=== PATIENT | female | born 2000 | race Caucasian/White ===

== ENCOUNTER 2019-01-09 14:55 | Emergency (ER) | payer OTHER ==
--- NOTE | 2019-01-09 15:16 | ER Report ---
History and Physical Time Seen By MD: 15:09 Hx. of Stated Complaint: PATIENT REPORTS THOUGHTS OF WANTING TO HURT HERSELF. HAS HISTORY OF CUTTING. REPORTS STRUGGLING WITH DEPRESSION FOR 5 YEARS HPI/ROS CHIEF COMPLAINT: Depression and suicidal ideation HISTORY OF PRESENT ILLNESS: This is a 18-year-old female who presents to emergency department for depression and suicidal ideations. The patient states that she has a long history of depression and anxiety. C also has a history of cutting usually on her right leg. Patient states that last semester she broke up with her boyfriend, did poorly in school's had other stressors that she is not diagnosing at this time. She states that she's had increased thoughts of hurting herself, today more specifically cutting herself with a knife, she did confide in her friend to subsequently brought her to the ER for evaluation. Patient is making intermittent eye contact, very judith voice, knees are flexed and hands in her lap. She does have tears welling up in her eyes. She denies fevers or chills. No chest pain or shortness of breath. No other complaints. REVIEW OF SYSTEMS: Constitutional: No fever, no chills. Eyes: No discharge. ENT: No sore throat. Cardiovascular: No chest pain, no palpitations. Respiratory: No cough, no shortness of breath. Gastrointestinal: No abdominal pain, no vomiting. Genitourinary: No hematuria. Musculoskeletal: No back pain. Skin: No rashes. Neurological: No headache. Psychological: As above. Allergies: Coded Allergies: Penicillins (Verified Allergy, Mild, 01/09/19) Sulfa (Sulfonamide Antibiotics) (Verified Allergy, Mild, 01/09/19) Past Medical/Surgical History The patient has a past medical and surgical history of depression and anxiety. Reviewed Nurses Notes: Yes Constitutional Vital Sign - Last 24 Hours 01/09/19 01/09/19 15:03 17:11 Temp 98.5 Pulse 91 84 Resp 16 16 B/P (MAP) 135/101 111/89 (96) Pulse Ox 97 95 O2 Delivery Room Air Room Air Physical Exam General Appearance: The patient is alert, has no immediate need for airway protection and no signs of toxicity. Eyes: Pupils equal and round no pallor or injection. ENT, Mouth: Mucous membranes are moist. Respiratory: There are no retractions, lungs are clear to auscultation. Cardiovascular: Regular rate and rhythm. Gastrointestinal: Abdomen is soft and non tender, no masses, bowel sounds normal. Neurological: Alert and oriented 4. Moving all extremities. Following all commands. No focal neurodeficits. Skin: Warm and dry, no rashes. Musculoskeletal: Neck is supple non tender. Extremities are nontender, nonswollen and have full range of motion. Psychological: Very soft and judith voice, intermittent eye contact, hand and lap, tears welling up in her eyes, forthcoming with some information however she is still guarded. DIFFERENTIAL DIAGNOSIS: After history and physical exam differential diagnosis was considered for suicidal ideation. Medical Decision Making Data Points Result Diagram: 01/09/19 1528 01/09/19 1528 Laboratory Hematology Test 01/09/19 15:28 Red Blood Count 5.38 M/uL (4.17-5.56) Mean Corpuscular Volume 89.8 fL (80.0-96.0) Mean Corpuscular Hemoglobin 30.9 pg (26.0-33.0) Mean Corpuscular Hemoglobin Concent 34.4 g/dL (32.0-36.0) Red Cell Distribution Width 12.5 % (11.5-14.5) Mean Platelet Volume 7.9 fL (7.2-11.1) Neutrophils (%) (Auto) 65.4 % (39.4-72.5) Lymphocytes (%) (Auto) 26.0 % (17.6-49.6) Monocytes (%) (Auto) 4.8 % (4.1-12.4) Eosinophils (%) (Auto) 1.7 % (0.4-6.7) Basophils (%) (Auto) 2.1 % (0.3-1.4) Nucleated RBC Relative Count (auto) 0.1 /100WBC Neutrophils # (Auto) 2.3 K/uL (2.0-7.4) Lymphocytes # (Auto) 0.9 K/uL (1.3-3.6) Monocytes # (Auto) 0.2 K/uL (0.3-1.0) Eosinophils # (Auto) 0.1 K/uL (0.0-0.5) Basophils # (Auto) 0.1 K/uL (0.0-0.1) Nucleated RBC Absolute Count (auto) 0.00 K/uL Urine Color Yellow Urine Clarity Clear Urine pH 7.0 pH (4.8-9.5) Urine Specific [place] 1.010 Urine Protein Negative mg/dL (NEGATIVE) Urine Glucose (UA) Negative mg/dL (NEGATIVE) Urine Ketones Negative mg/dL (NEGATIVE) Urine Blood Negative (NEGATIVE) Urine Nitrite Negative (NEGATIVE) Urine Bilirubin Negative (NEGATIVE) Urine Urobilinogen Negative mg/dL (0.2-1.9) Urine Leukocyte Esterase Negative (NEGATIVE) Urine RBC <1 /HPF (0-2/HPF) Urine WBC 1 /HPF (0-5/HPF) Urine Squamous Epithelial Cells Many /LPF (</=FEW) Urine Bacteria Few /HPF (NONE-FEW) Urine Mucus Few /HPF (NONE-FEW) Urine HCG, Qualitative Negative (NEGATIVE) Sodium Level 142 mmol/L (137-145) Potassium Level 3.8 mmol/L (3.5-5.0) Chloride Level 103 mmol/L (98-107) Carbon Dioxide Level 27 mmol/L (22-31) Blood Urea Nitrogen 10 mg/dl (7-18) Creatinine 0.70 mg/dl (0.52-1.04) Glomerular Filtration Rate Calc > 60.0 Random Glucose 87 mg/dl (75-110) Calcium Level 10.1 mg/dl (8.4-10.2) Magnesium Level 2.0 mg/dl (1.7-2.2) Total Bilirubin 0.8 mg/dl (0.2-1.3) Aspartate Amino Transf (AST/SGOT) 23 U/L (0-35) Alanine Aminotransferase (ALT/SGPT) 19 U/L (0-56) Alkaline Phosphatase 69 U/L (0-126) Total Protein 8.8 g/dl (6.3-8.2) Albumin 5.5 g/dl (3.5-5.0) Salicylates Level < 10 mg/L Salicylate Last Dose Date unk Urine Opiates Screen Negative Acetaminophen Level < 10 ug/ml Urine Barbiturates Screen Negative Ur Tricyclic Antidepressants Screen Negative Urine Phencyclidine Screen Negative Urine Amphetamines Screen Negative Urine Benzodiazepines Screen Negative Urine Cocaine Screen Negative Urine Cannabinoids Screen Negative Serum Alcohol < 10 mg/dl Chemistry Test 01/09/19 15:28 White Blood Count 3.5 k/uL (4.5-11.0) Red Blood Count 5.38 M/uL (4.17-5.56) Hemoglobin 16.6 g/dL (12.0-16.0) Hematocrit 48.3 % (34.0-47.0) Mean Corpuscular Volume 89.8 fL (80.0-96.0) Mean Corpuscular Hemoglobin 30.9 pg (26.0-33.0) Mean Corpuscular Hemoglobin Concent 34.4 g/dL (32.0-36.0) Red Cell Distribution Width 12.5 % (11.5-14.5) Platelet Count 241 K/uL (150-450) Mean Platelet Volume 7.9 fL (7.2-11.1) Neutrophils (%) (Auto) 65.4 % (39.4-72.5) Lymphocytes (%) (Auto) 26.0 % (17.6-49.6) Monocytes (%) (Auto) 4.8 % (4.1-12.4) Eosinophils (%) (Auto) 1.7 % (0.4-6.7) Basophils (%) (Auto) 2.1 % (0.3-1.4) Nucleated RBC Relative Count (auto) 0.1 /100WBC Neutrophils # (Auto) 2.3 K/uL (2.0-7.4) Lymphocytes # (Auto) 0.9 K/uL (1.3-3.6) Monocytes # (Auto) 0.2 K/uL (0.3-1.0) Eosinophils # (Auto) 0.1 K/uL (0.0-0.5) Basophils # (Auto) 0.1 K/uL (0.0-0.1) Nucleated RBC Absolute Count (auto) 0.00 K/uL Urine Color Yellow Urine Clarity Clear Urine pH 7.0 pH (4.8-9.5) Urine Specific [place] 1.010 Urine Protein Negative mg/dL (NEGATIVE) Urine Glucose (UA) Negative mg/dL (NEGATIVE) Urine Ketones Negative mg/dL (NEGATIVE) Urine Blood Negative (NEGATIVE) Urine Nitrite Negative (NEGATIVE) Urine Bilirubin Negative (NEGATIVE) Urine Urobilinogen Negative mg/dL (0.2-1.9) Urine Leukocyte Esterase Negative (NEGATIVE) Urine RBC <1 /HPF (0-2/HPF) Urine WBC 1 /HPF (0-5/HPF) Urine Squamous Epithelial Cells Many /LPF (</=FEW) Urine Bacteria Few /HPF (NONE-FEW) Urine Mucus Few /HPF (NONE-FEW) Urine HCG, Qualitative Negative (NEGATIVE) Glomerular Filtration Rate Calc > 60.0 Calcium Level 10.1 mg/dl (8.4-10.2) Magnesium Level 2.0 mg/dl (1.7-2.2) Total Bilirubin 0.8 mg/dl (0.2-1.3) Aspartate Amino Transf (AST/SGOT) 23 U/L (0-35) Alanine Aminotransferase (ALT/SGPT) 19 U/L (0-56) Alkaline Phosphatase 69 U/L (0-126) Total Protein 8.8 g/dl (6.3-8.2) Albumin 5.5 g/dl (3.5-5.0) Salicylates Level < 10 mg/L Salicylate Last Dose Date unk Urine Opiates Screen Negative Acetaminophen Level < 10 ug/ml Urine Barbiturates Screen Negative Ur Tricyclic Antidepressants Screen Negative Urine Phencyclidine Screen Negative Urine Amphetamines Screen Negative Urine Benzodiazepines Screen Negative Urine Cocaine Screen Negative Urine Cannabinoids Screen Negative Serum Alcohol < 10 mg/dl Toxicology Test 01/09/19 15:28 Salicylates Level < 10 mg/L Salicylate Last Dose Date unk Urine Opiates Screen Negative Acetaminophen Level < 10 ug/ml Urine Barbiturates Screen Negative Ur Tricyclic Antidepressants Screen Negative Urine Phencyclidine Screen Negative Urine Amphetamines Screen Negative Urine Benzodiazepines Screen Negative Urine Cocaine Screen Negative Urine Cannabinoids Screen Negative Serum Alcohol < 10 mg/dl Urinalysis Test 01/09/19 15:28 Urine Color Yellow Urine Clarity Clear Urine pH 7.0 pH (4.8-9.5) Urine Specific [place] 1.010 Urine Protein Negative mg/dL (NEGATIVE) Urine Glucose (UA) Negative mg/dL (NEGATIVE) Urine Ketones Negative mg/dL (NEGATIVE) Urine Blood Negative (NEGATIVE) Urine Nitrite Negative (NEGATIVE) Urine Bilirubin Negative (NEGATIVE) Urine Urobilinogen Negative mg/dL (0.2-1.9) Urine Leukocyte Esterase Negative (NEGATIVE) Urine RBC <1 /HPF (0-2/HPF) Urine WBC 1 /HPF (0-5/HPF) Urine Squamous Epithelial Cells Many /LPF (</=FEW) Urine Bacteria Few /HPF (NONE-FEW) Urine Mucus Few /HPF (NONE-FEW) Urine HCG, Qualitative Negative (NEGATIVE) ED Course/Re-evaluation ED Course The patient was admitted to room. A history and physical obtained. Differential diagnoses were considered. A CBC, CMP were obtained. Lab studies unremarkable, and tox screen, negative EtOH. Ultimately the patient did sign in to the behavioral health unit on a voluntary basis, I did speak with Dr. Summers, she is to the patient and the behavioral health unit for suicidal ideation. Patient re mained tearful yet cooperative on the emergency department. She did have a friend at the bedside during her stay in the ER. 01/09/2019 4:35:41 pm I did review the case with Dr. Summers, she has accepted the patient into the behavioral health unit. The patient was reluctant to sign in voluntarily, however she has agreed to sign in. Decision to Disposition Date: Jan 09, 2019 Decision to Disposition Time: 16:35 Depart Departure Latest Vital Signs Vital Signs Date Time Temp Pulse Resp B/P (MAP) Pulse Ox O2 Delivery O2 Flow Rate FiO2 01/09/19 17:11 84 16 111/89 (96) 95 Room Air 01/09/19 15:03 98.5 Impression: Primary Impression: Suicidal ideation Condition: Improved Disposition: XFER TO [facility] ELVIN SOTOP-BC Jan 09, 2019 15:16
[2019-01-09 15:32] LABS: PLATELET COUNT, AUTOMATED 241 K/uL (150-450)
[2019-01-09 17:11] VITALS: BP 111/89
[2019-01-09] MEDS ORDERED: LEVO1IUD3 IY (20:21)
== END 2019-01-09 17:16 ==
LOC: ER 15:05
DX: R45.851 Suicidal ideations (principal); F41.9 Anxiety disorder, unspecified
CPT/HCPCS: 80305; 80320; 80329; 81001; 81025; 82040; 82247; 82310; 82374; 82435; 82565; 82947; 83735; 84075; 84132; 84155; 84295; 84443; 84450; 84460; 84520; 85025; 99284

== ENCOUNTER 2019-01-09 16:59 | Inpatient (IN) | payer OTHER ==
[~2019-01-09] VITALS: Ht 170.2 cm; Wt 47.6 kg
[2019-01-09] MEDS ORDERED: ACETAMINOPHEN 325 MG TAB PO PRN (17:30)
[2019-01-09] MEDS ORDERED: traZODone HCL 50 MG TAB PO PRN (17:30)
[2019-01-09] MEDS ORDERED: MAG HYD/AL HYD/SIMETH 30ML UDC PO PRN (17:30)
[2019-01-09 18:13] VITALS: BP 105/76
[2019-01-09] MEDS ORDERED: LEVO1IUD3 IY (20:21)
[2019-01-10 06:41] VITALS: BP 96/62
[2019-01-10] MEDS: MULTIVITAMINS PO SCH (08:16)
[2019-01-10 12:55] VITALS: BP 89/57
--- NOTE | 2019-01-10 17:28 | HISTORY AND PHYSICAL ---
DATE OF ADMISSION: January 09, 2019 ATTENDING PHYSICIAN Astrid Summers MD The patient was interviewed on 01/10/2019 at 10 a.m. for this history and physical. CHIEF COMPLAINT "I had a rough semester last fall, and I've been feeling really hopeless." HISTORY OF PRESENT ILLNESS The patient is a 18-year-old female who has never had a previous psychiatric hospitalization and who is here as a voluntary patient with self-harm thoughts and suicidal thoughts about cutting herself on her thigh. The patient says that she has had depression on and off for many years, but last semester things got worse. She broke up with a three-year boyfriend in August and has been increasingly depressed since then. She had been a college student taking on- line classes from [employer] last fall, but after the breakup, she quit doing her college classes. She says her motivation has been low. She has been feeling hopeless, depressed, with poor appetite, lack of erica in things that she formerly enjoyed, and difficulty sleeping. Yesterday, she was feeling really stressed out and felt like she was going to cut herself and was afraid that she would cut herself so deeply that she would end up committing suicide. She talked to a friend on the phone, who brought her to the emergency room, and she was admitted voluntarily. She does have a past history of cutting on her thigh for the past year. This has been superficial cutting. PAST PSYCHIATRIC HISTORY The patient was diagnosed with depression at the age of 14 and treated with Prozac for one year as well as outpatient psychotherapy. She felt the Prozac helped a little bit, but made her feel numb. For the past one year, she has engaged in superficial cutting when she feels stressed. She did attempt some outpatient therapy for three sessions at [facility] last fall, but did not find it particularly helpful. Over the past two weeks, she has been trying to get back into therapy, and she finally had her first session with a new therapist the day before yesterday. This therapist is named Karin at [facility] in [place]. She felt that that session went well. She has never had a suicide attempt. She has never been hospitalized. FAMILY PSYCHIATRIC HISTORY She believes there is addiction on her mother's side of the family in some of her relatives and possibly depression in her mother. PAST MEDICAL HISTORY She has scoliosis and has recently been going to physical therapy because of right hip pain. MEDICATIONS She is on no medications currently. ALLERGIES She is allergic to PENICILLIN and SULFA. SOCIAL HISTORY She was born and raised in [place] to parents who are still . She has one 15-year-old brother. She says she is close with her parents and her brother. She was raised in the [place]. She attended an alternative high school in [place] called [employer], from which she graduated. This high school was chosen because it had less people and smaller class sizes since her previous high school felt too large for her. She then attended some on-line classes at [employer]. She was dating a boyfriend for three years, and they broke up in August. This breakup was very hard on her. She is employed as a head waiter/waitress banquet at the [employer] She enjoys hiking and making jewelry. LEGAL HISTORY None. VICTIM ISSUES She denies any history of physical or sexual abuse. SUBSTANCE ABUSE HISTORY She denies any use of drugs or alcohol. PHYSICAL EXAMINATION Please see the emergency room physician's report. VITAL SIGNS: Temperature 99.2, pulse 89, respiratory rate 18, blood pressure 105/76, pulse ox is 98% on room air. LABORATORY DATA WBCs low at 3.5, hemoglobin high at 16.6, hematocrit high at 48.3. The remainder of her CBC is normal. Chemistry panel is normal except for total protein high at 8.8. Albumin is high at 5.5. Urinalysis is within normal limits. Urine hCG is negative. Her tox screen is negative, and her serum alcohol is nil. MENTAL STATUS EXAMINATION She is a thin young woman with long black hair and wearing makeup. She was cooperative. She displays psychomotor retardation with a downcast gaze. Her speech was very quiet and normal in rate and tone. Her mood and affect were depressed. She was tearful once or twice. Thought process was logical and goal directed. Thought content was negative for current suicidal ideation. She denied homicidal ideation, auditory hallucinations, visual hallucinations, and delusions. She is alert and fully oriented to person, place, time, and situation. Memory is intact for immediate, recent, and remote recall. Intelligence is average based on interview. Insight and judgment are fair. IMPRESSION Unspecified depressive disorder. PLAN She is admitted to [facility] and being maintained on suicide precautions. She will attend individual and group therapies. We have discussed medications, and she chose to begin Remeron. We chose this medication because she has had difficulty sleeping as well as a decrease in her appetite, and this medication should be helpful for both of those. She will have laboratory testing as indicated. Her estimated length of stay will be three to five days. YAHIR
[2019-01-10] MEDS ORDERED: MIRTAZAPINE 15 MG TAB PO SCH (21:00)
[2019-01-11] MEDS: MULTIVITAMINS PO SCH (08:10)
[2019-01-11] MEDS ORDERED: MIRT-17 PO (09:48)
[2019-01-11 14:05] VITALS: BP 102/58
--- NOTE | 2019-01-11 14:06 | BHS Discharge Summary ---
[facility] Discharge Summary [id number] Encounter Date: Jan 11, 2019 [id number] Encounter Time: 08:30 Reason-Hosp/Final Diag (DSM-V): (1) Depression with suicidal ideation Hospital Course & Plan: CHIEF COMPLAINT "I had a rough semester last fall, and I've been feeling really hopeless." HISTORY OF PRESENT ILLNESS The patient is a 18-year-old female who has never had a previous psychiatric hospitalization and who is here as a voluntary patient with self-harm thoughts and suicidal thoughts about cutting herself on her thigh. The patient says that she has had depression on and off for many years, but last semester things got worse. She broke up with a three-year boyfriend in August and has been increasingly depressed since then. She had been a college student taking on- line classes from [employer] last fall, but after the breakup, she quit doing her college classes. She says her motivation has been low. She has been feeling hopeless, depressed, with poor appetite, lack of erica in things that she formerly enjoyed, and difficulty sleeping. Yesterday, she was feeling really stressed out and felt like she was going to cut herself and was afraid that she would cut herself so deeply that she would end up committing suicide. She talked to a friend on the phone, who brought her to the emergency room, and she was admitted voluntarily. She does have a past history of cutting on her thigh for the past year. This has been superficial cutting. PAST PSYCHIATRIC HISTORY The patient was diagnosed with depression at the age of 14 and treated with Prozac for one year as well as outpatient psychotherapy. She felt the Prozac helped a little bit, but made her feel numb. For the past one year, she has engaged in superficial cutting when she feels stressed. She did attempt some outpatient therapy for three sessions at [facility] last fall, but did not find it particularly helpful. Over the past two weeks, she has been trying to get back into therapy, and she finally had her first session with a new therapist the day before yesterday. This therapist is named Karin at [facility] in [place]. She felt that that session went well. She has never had a suicide attempt. She has never been hospitalized. HOSPITAL COURSE Pt was admitted to [facility] and maintained on suicide precautions. She was cooperative and took an active role in her treatment. We held a treatment team meeting with her mother and father on the speaker phone, and they were very supportive. We discussed antidepressant options and chose remeron 15 mg q hs-- this was chosen because she had been having a lot of insomnia and also decreased appetite. She attended groups and individual therapies, and created a wellness and recovery plan. She never did have any further SI while in the hospital. At the time of discharge she was much brighter in affect, future-oriented, talking about getting a job in a local dental office. She will follow up with her therapist Karin on Thursday 01/18 at 11 am. She will see [facility] for medication management. Physical Exam Latest Vital Signs Vital Signs 01/10/19 12:55 Temp 98.1 Pulse 93 Resp 18 B/P (MAP) 89/57 (68) Pulse Ox 98 O2 Delivery Room Air Mental Status Exam General Appearance: Casual, Well Groomed, Good Eye Contact, Cooperative, Polite, Good Interaction Speech: Clear, Spontaneous, Normal Rate, Normal Rhythm, Normal Tone, Other (quiet volume) Mood: Euthymic Affect: Full and Appropriate, Calm Thought Process: Organized, Logical, Goal Directed Thought Content: No Suicidal Ideation, No Homicidal Ideation, No Delusions, No Auditory Halllucinations, No Visual Hallucinations, No Thought Broadcasting, No Ideas of Reference, No Obsessions, No Compulsions, No Other Sensorium: Clear Cognition: Alert & Oriented-Person, Alert & Oriented-Place, Alert & Oriented- Time, [id number]-[id number]-[id number] Memory: Immediate, Recent, Remote Intelligence: Average Insight Judgment: Fair Departure Item Value Date Time White Blood Count 3.5 k/uL L 01/09/19 1528 Red Blood Count 5.38 M/uL 01/09/19 1528 Hemoglobin 16.6 g/dL H 01/09/19 1528 Hematocrit 48.3 % H 01/09/19 1528 Mean Corpuscular Volume 89.8 fL 01/09/19 1528 Mean Corpuscular Hemoglobin 30.9 pg 01/09/19 1528 Mean Corpuscular Hemoglobin Concent 34.4 g/dL 01/09/19 1528 Red Cell Distribution Width 12.5 % 01/09/19 1528 Platelet Count 241 K/uL 01/09/19 1528 Sodium Level 142 mmol/L 01/09/19 1528 Potassium Level 3.8 mmol/L 01/09/19 1528 Chloride Level 103 mmol/L 01/09/19 1528 Carbon Dioxide Level 27 mmol/L 01/09/19 1528 Blood Urea Nitrogen 10 mg/dl 01/09/19 1528 Creatinine 0.70 mg/dl 01/09/19 1528 Glomerular Filtration Rate Calc > 60.0 01/09/19 1528 Random Glucose 87 mg/dl 01/09/19 1528 Calcium Level 10.1 mg/dl 01/09/19 1528 Magnesium Level 2.0 mg/dl 01/09/19 1528 Total Bilirubin 0.8 mg/dl 01/09/19 1528 Aspartate Amino Transf (AST/SGOT) 23 U/L 01/09/19 1528 Alanine Aminotransferase (ALT/SGPT) 19 U/L 01/09/19 1528 Alkaline Phosphatase 69 U/L 01/09/19 1528 Total Protein 8.8 g/dl H 01/09/19 1528 Albumin 5.5 g/dl H 01/09/19 1528 Thyroid Stimulating Hormone (TSH) 2.46 uIU/ml 01/09/19 1528 Urine Color Yellow 01/09/19 1528 Urine Clarity Clear 01/09/19 1528 Urine pH 7.0 pH 01/09/19 1528 Urine Specific [place] 1.010 01/09/19 1528 Urine Protein Negative mg/dL 01/09/19 1528 Urine Glucose (UA) Negative mg/dL 01/09/19 1528 Urine Ketones Negative mg/dL 01/09/19 1528 Urine Blood Negative 01/09/19 1528 Urine Nitrite Negative 01/09/19 1528 Urine Bilirubin Negative 01/09/19 1528 Urine Urobilinogen Negative mg/dL 01/09/19 1528 Urine Leukocyte Esterase Negative 01/09/19 1528 Urine RBC <1 /HPF 01/09/19 1528 Urine WBC 1 /HPF 01/09/19 1528 Urine Squamous Epithelial Cells Many /LPF H 01/09/19 1528 Urine Bacteria Few /HPF 01/09/19 1528 Urine Mucus Few /HPF 01/09/19 1528 Urine HCG, Qualitative Negative 01/09/19 1528 Salicylates Level < 10 mg/L 01/09/19 1528 Salicylate Last Dose Date unk 01/09/19 1528 Urine Opiates Screen Negative 01/09/19 1528 Acetaminophen Level < 10 ug/ml 01/09/19 1528 Urine Barbiturates Screen Negative 01/09/19 1528 Ur Tricyclic Antidepressants Screen Negative 01/09/19 1528 Urine Phencyclidine Screen Negative 01/09/19 1528 Urine Amphetamines Screen Negative 01/09/19 1528 Urine Benzodiazepines Screen Negative 01/09/19 1528 Urine Cocaine Screen Negative 01/09/19 1528 Urine Cannabinoids Screen Negative 01/09/19 1528 Serum Alcohol < 10 mg/dl 01/09/19 1528 Condition: Improved Discharge to: Home Discharge Instructions Home Meds Reported Medications Mirtazapine (REMERON) 15 Mg Tab.rapdis, 15 MG PO QHS 01/11/19 Levonorgestrel 20 Mcg/Day (MIRENA 20 MCG/DAY) 1 Each Iud, EACH IY, #1 01/09/19 Multpiple Antipsychotics Used: No Diet: Regular Activity: As Tolerated Special Instructions: Take medications as prescribed. Follow up with outpatient provider for medication management. Follow up with outpatient therapy. Call Crisis Line should symptoms return. VIOLETTA MEZA MD Jan 11, 2019 14:06
== END 2019-01-11 16:25 | disposition home or self-care (01) | DRG 881 ==
LOC: BHS 16:59
PROVIDERS: ADMIT Psychiatry & Neurology Psychiatry; ATTEND Psychiatry & Neurology Psychiatry
DX: F32.9 Major depressive disorder, single episode, unspecified (principal); R45.851 Suicidal ideations; M41.9 Scoliosis, unspecified; Z63.5 Disruption of family by separation and divorce; Z91.5 Personal history of self-harm; Z88.0 Allergy status to penicillin; Z88.2 Allergy status to sulfonamides; Z55.9 Problems related to education and literacy, unspecified

== ENCOUNTER 2019-03-24 22:59 | Emergency (ER) | payer OTHER ==
[~2019-03-24 22:59] MED LIST: LEVO1IUD3 IY; MIRT-17 PO
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
[2019-03-24 23:05] VITALS: BP 126/73
[2019-03-24] MEDS ORDERED: BACITRACIN OINT 0.9 GM PKT TP ONE (23:15)
[2019-03-24] MEDS ORDERED: oxyCODONE/ACETAMIN 5/325MG TH 2 TAB/BOTTLE PO ONE (23:15)
[2019-03-24] MEDS ORDERED: BACI28.415 TP (23:20)
[2019-03-24] MEDS ORDERED: OXYC-373 PO (23:20)
== END 2019-03-24 23:37 | disposition home or self-care (01) ==
LOC: ER 23:17
DX: T22.211A Burn of second degree of right forearm, initial encounter (principal); X10.0XXA Contact with hot drinks, initial encounter
CPT/HCPCS: 99283